=== PATIENT | male | born 1990 | race Caucasian/White ===

== ENCOUNTER → 2017-02-06 | Outpatient (CLI) | payer BC, OTHER ==
[~2017-02-06] MED LIST: HYDROCORTISONE SUCCINATE 100 MG/2 ML VIAL IV ONE; SODIUM CHLORIDE 0.9% 250 ML in EMPTY BAG 1 BAG IV PRN; SODIUM CHLORIDE 0.9% 500 ML in EMPTY BAG 1 BAG IV PRN; TUBERCULIN PPD (SKIN TEST) 5 UNIT/0.1 ML (MDV) VIAL INTRADERMA NR; diphenhydrAMINE 50 MG/ML 1 ML VIAL IVP ONE
[2017-02-06 12:39] VITALS: TEMP 97.9
[2017-02-06 14:47] VITALS: BP 130/75; PULSE 72; RESP 18
== END | disposition home or self-care (01) ==
LOC: PROCWHC3 12:15
PROVIDERS: ATTEND Internal Medicine
DX: K51.90 Ulcerative colitis, unspecified, without complications (principal)
CPT/HCPCS: 96361; 96375; 96413; 96415; 86580; J1200; J1720; J1745

== ENCOUNTER → 2017-04-01 | Outpatient (CLI) | payer OTHER ==
[~2017-04-01] MED LIST changes: -TUBERCULIN PPD (SKIN TEST) 5 UNIT/0.1 ML (MDV) VIAL INTRADERMA NR
[2017-04-01 08:42] VITALS: RESP 18; TEMP 97.4
[2017-04-01 10:33] VITALS: BP 120/72; PULSE 59
== END | disposition home or self-care (01) ==
LOC: PROCWHC3 08:26
PROVIDERS: ATTEND Internal Medicine
DX: K51.90 Ulcerative colitis, unspecified, without complications (principal)
CPT/HCPCS: 96413; 96415; J1200; J1720; J1745; 96375

== ENCOUNTER → 2017-05-27 | Outpatient (CLI) | payer OTHER ==
[~2017-05-27] MED LIST changes: -HYDROCORTISONE SUCCINATE 100 MG/2 ML VIAL IV ONE; +HYDROCORTISONE SUCCINATE 100 MG/2 ML VIAL IVP ONE
[2017-05-27 10:59] VITALS: TEMP 98.8
[2017-05-27 11:43] VITALS: RESP 18
[2017-05-27 12:38] VITALS: BP 129/66; PULSE 66
== END ==
LOC: PROCWHC3 10:25
PROVIDERS: ATTEND Internal Medicine
DX: Z51.11 Encounter for antineoplastic chemotherapy (principal); K50.10 Crohn's disease of large intestine without complications
CPT/HCPCS: 96375; 96413; 96415; J1200; J1720; J1745

== ENCOUNTER → 2017-07-22 | Outpatient (CLI) | payer OTHER ==
[~2017-07-22] MED LIST changes: +HYDROCORTISONE SUCCINATE 100 MG/2 ML VIAL IV ONE; -HYDROCORTISONE SUCCINATE 100 MG/2 ML VIAL IVP ONE; -SODIUM CHLORIDE 0.9% 250 ML in EMPTY BAG 1 BAG IV PRN
[2017-07-22 10:44] VITALS: RESP 18; TEMP 97.9
[2017-07-22 12:11] VITALS: BP 130/78; PULSE 66
== END | disposition home or self-care (01) ==
LOC: PROCWHC3 10:27
PROVIDERS: ATTEND Internal Medicine
DX: K50.10 Crohn's disease of large intestine without complications (principal)
CPT/HCPCS: 96375; 96413; 96415; J1200; J1720; J1745

== ENCOUNTER → 2017-09-20 | Outpatient (CLI) | payer OTHER ==
[~2017-09-20] MED LIST changes: +INFLIXIMAB DYYB IV ONE; +SODIUM CHLORIDE 0.9% IV ONE
[2017-09-20 09:00] VITALS: RESP 16; TEMP 98
[2017-09-20 10:29] VITALS: BP 116/74; PULSE 60
== END ==
LOC: PROCWHC3 08:47
PROVIDERS: ATTEND Internal Medicine
DX: K50.10 Crohn's disease of large intestine without complications (principal)
CPT/HCPCS: 96374; 96413; 96415; J1200; J1720; Q5102

== ENCOUNTER → 2018-01-14 | Outpatient (CLI) | payer OTHER ==
[~2018-01-14] MED LIST changes: +HYDROCORTISONE SUCCINATE 100 MG/2 ML VIAL IV NR; -HYDROCORTISONE SUCCINATE 100 MG/2 ML VIAL IV ONE; +INFLIXIMAB DYYB IV NR; -INFLIXIMAB DYYB IV ONE; +SODIUM CHLORIDE 0.9% IV NR; -SODIUM CHLORIDE 0.9% IV ONE; +diphenhydrAMINE 50 MG/ML 1 ML VIAL IVP NR; -diphenhydrAMINE 50 MG/ML 1 ML VIAL IVP ONE
[2018-01-14 11:01] VITALS: RESP 16; TEMP 98
[2018-01-14 11:54] VITALS: PULSE 71
[2018-01-14 12:25] VITALS: BP 132/72
== END | disposition home or self-care (01) ==
LOC: PROCWHC3 10:48
PROVIDERS: ATTEND Internal Medicine
DX: K50.10 Crohn's disease of large intestine without complications (principal)
CPT/HCPCS: 96375; 96413; 96415; J1200; J1720; Q5102

== ENCOUNTER → 2018-03-11 | Outpatient (CLI) | payer OTHER ==
[2018-03-11 11:25] VITALS: TEMP 97.9
[2018-03-11 12:46] VITALS: RESP 16
[2018-03-11 13:25] VITALS: BP 133/77; PULSE 77
== END | disposition home or self-care (01) ==
LOC: PROCWHC3 10:54
PROVIDERS: ATTEND Internal Medicine
DX: K50.10 Crohn's disease of large intestine without complications (principal)
CPT/HCPCS: 96375; 96413; 96415; J1200; J1720; Q5103

== ENCOUNTER → 2018-05-05 | Outpatient (CLI) | payer OTHER ==
[~2018-05-05] MED LIST changes: -HYDROCORTISONE SUCCINATE 100 MG/2 ML VIAL IV NR; +HYDROCORTISONE SUCCINATE 100 MG/2 ML VIAL IV ONE; -INFLIXIMAB DYYB IV NR; +INFLIXIMAB DYYB IV ONE; -SODIUM CHLORIDE 0.9% IV NR; +SODIUM CHLORIDE 0.9% IV ONE; -diphenhydrAMINE 50 MG/ML 1 ML VIAL IVP NR; +diphenhydrAMINE 50 MG/ML 1 ML VIAL IVP ONE
[2018-05-05 10:52] VITALS: TEMP 98.6
[2018-05-05 11:43] VITALS: RESP 16
[2018-05-05 12:08] VITALS: BP 134/74; PULSE 70
== END | disposition home or self-care (01) ==
LOC: PROCWHC3 10:22
PROVIDERS: ATTEND Internal Medicine
DX: K50.10 Crohn's disease of large intestine without complications (principal)
CPT/HCPCS: 96413; 96415; J1200; J1720; Q5103

== ENCOUNTER → 2018-07-01 | Outpatient (CLI) | payer OTHER ==
[2018-07-01 10:11] VITALS: TEMP 97.9
[2018-07-01 10:55] VITALS: RESP 16
[2018-07-01 12:15] VITALS: BP 135/76; PULSE 61
== END | disposition home or self-care (01) ==
LOC: PROCWHC3 09:49
PROVIDERS: ATTEND Internal Medicine
DX: K51.90 Ulcerative colitis, unspecified, without complications (principal)
CPT/HCPCS: 96413; 96415; J1200; J1720; Q5103

== ENCOUNTER → 2018-08-26 | Outpatient (CLI) | payer OTHER ==
[~2018-08-26] MED LIST changes: +HYDROCORTISONE SUCCINATE 100 MG/2 ML VIAL IV NR; -HYDROCORTISONE SUCCINATE 100 MG/2 ML VIAL IV ONE; +INFLIXIMAB DYYB IV NR; -INFLIXIMAB DYYB IV ONE; +SODIUM CHLORIDE 0.9% IV NR; -SODIUM CHLORIDE 0.9% IV ONE; +diphenhydrAMINE 50 MG/ML 1 ML VIAL IVP NR; -diphenhydrAMINE 50 MG/ML 1 ML VIAL IVP ONE
[2018-08-26 08:17] VITALS: TEMP 98
[2018-08-26 09:25] VITALS: RESP 16
[2018-08-26 10:26] VITALS: BP 129/74; PULSE 73
== END | disposition home or self-care (01) ==
LOC: PROCWHC3 08:07
PROVIDERS: ATTEND Internal Medicine
DX: K50.10 Crohn's disease of large intestine without complications (principal)
CPT/HCPCS: 96375; 96413; 96415; J1200; J1720; Q5103

== ENCOUNTER → 2018-10-21 | Outpatient (CLI) | payer OTHER ==
[~2018-10-21] MED LIST changes: +SODIUM CHLORIDE 0.9% 500 ML 500 ML in EMPTY BAG 1 BAG IV PRN; -SODIUM CHLORIDE 0.9% 500 ML in EMPTY BAG 1 BAG IV PRN
[2018-10-21 08:39] VITALS: RESP 16; TEMP 97.6
[2018-10-21 10:11] VITALS: BP 129/68; PULSE 57
== END ==
LOC: PROCWHC3 08:19
PROVIDERS: ATTEND Internal Medicine
DX: K50.10 Crohn's disease of large intestine without complications (principal); K51.90 Ulcerative colitis, unspecified, without complications
CPT/HCPCS: 96375; 96413; 96415; J1200; J1720; Q5103

== ENCOUNTER → 2018-12-16 | Outpatient (CLI) | payer OTHER ==
[~2018-12-16] MED LIST changes: -HYDROCORTISONE SUCCINATE 100 MG/2 ML VIAL IV NR; +HYDROCORTISONE SUCCINATE 100 MG/2 ML VIAL IVP NR
[2018-12-16 12:42] VITALS: RESP 16; TEMP 97.5
[2018-12-16 14:26] VITALS: BP 116/72; PULSE 61
== END ==
LOC: PROCWHC3 12:25
PROVIDERS: ATTEND Internal Medicine
DX: K51.90 Ulcerative colitis, unspecified, without complications (principal); K50.10 Crohn's disease of large intestine without complications
CPT/HCPCS: 96413; 96415; J1200; J1720; Q5103

== ENCOUNTER → 2019-02-10 | Outpatient (CLI) | payer OTHER ==
[2019-02-10 12:25] VITALS: RESP 16; TEMP 98
[2019-02-10 14:07] VITALS: BP 133/75; PULSE 78
== END | disposition home or self-care (01) ==
LOC: PROCWHC3 11:57
PROVIDERS: ATTEND Internal Medicine
DX: K50.10 Crohn's disease of large intestine without complications (principal)
CPT/HCPCS: 96375; 96413; 96415; J1200; J1720; Q5103

== ENCOUNTER → 2019-04-10 | Outpatient (CLI) | payer OTHER ==
[2019-04-10 09:13] VITALS: TEMP 97.8
[2019-04-10 10:09] VITALS: RESP 18
[2019-04-10 10:51] VITALS: BP 143/79; PULSE 63
== END ==
LOC: PROCWHC3 08:52
PROVIDERS: ATTEND Internal Medicine
DX: K51.90 Ulcerative colitis, unspecified, without complications (principal); K50.10 Crohn's disease of large intestine without complications
CPT/HCPCS: 96375; 96413; 96415; J1200; J1720; Q5103

== ENCOUNTER → 2019-06-11 | Outpatient (CLI) | payer OTHER ==
[~2019-06-11] MED LIST changes: +HYDROCORTISONE SUCCINATE 100 MG/2 ML VIAL IV ONE; -HYDROCORTISONE SUCCINATE 100 MG/2 ML VIAL IVP NR; -diphenhydrAMINE 50 MG/ML 1 ML VIAL IVP NR; +diphenhydrAMINE 50 MG/ML 1 ML VIAL IVP ONE
[2019-06-11 09:19] VITALS: TEMP 98.2
[2019-06-11] MEDS: HYDROCORTISONE SUCCINATE 100 MG/2 ML VIAL IV ONE ×2 (09:22→09:42)
[2019-06-11 10:13] VITALS: RESP 16
[2019-06-11 10:48] VITALS: BP 113/63; PULSE 61
== END | disposition home or self-care (01) ==
LOC: PROCWHC3 09:00
PROVIDERS: ATTEND Internal Medicine
DX: K50.10 Crohn's disease of large intestine without complications (principal)
CPT/HCPCS: 96375; 96413; 96415; J1200; J1720; Q5103

== ENCOUNTER → 2019-08-06 | Outpatient (CLI) | payer OTHER ==
[~2019-08-06] MED LIST changes: -HYDROCORTISONE SUCCINATE 100 MG/2 ML VIAL IV ONE; +HYDROCORTISONE SUCCINATE 100 MG/2 ML VIAL IVP ONE
[2019-08-06 10:11] VITALS: TEMP 97.9
[2019-08-06 11:18] VITALS: RESP 18
[2019-08-06 11:42] VITALS: BP 132/75; PULSE 50
== END | disposition home or self-care (01) ==
LOC: PROCWHC3 09:54
PROVIDERS: ATTEND Internal Medicine
DX: K51.90 Ulcerative colitis, unspecified, without complications (principal); K50.10 Crohn's disease of large intestine without complications
CPT/HCPCS: 96375; 96413; 96415; J1200; J1720; Q5103

== ENCOUNTER → 2019-10-05 | Outpatient (CLI) | payer OTHER ==
[~2019-10-05] MED LIST changes: +HYDROCORTISONE SUCCINATE 100 MG/2 ML VIAL IVP NR; -HYDROCORTISONE SUCCINATE 100 MG/2 ML VIAL IVP ONE; +SODIUM CHLORIDE 0.9% 250 ML IV NR; +diphenhydrAMINE 50 MG/ML 1 ML VIAL IVP NR; -diphenhydrAMINE 50 MG/ML 1 ML VIAL IVP ONE
[2019-10-05 10:00] VITALS: TEMP 97.9
[2019-10-05 10:44] VITALS: RESP 16
[2019-10-05 11:29] VITALS: BP 125/79; PULSE 69
== END ==
LOC: PROCWHC3 09:27
PROVIDERS: ATTEND Internal Medicine
DX: K50.10 Crohn's disease of large intestine without complications (principal)
CPT/HCPCS: 96375; 96413; 96415; J1200; J1720; Q5103

== ENCOUNTER → 2019-11-30 | Outpatient (CLI) | payer OTHER ==
[~2019-11-30] MED LIST changes: +HYDROCORTISONE SUCCINATE 100 MG/2 ML VIAL IV NR; -HYDROCORTISONE SUCCINATE 100 MG/2 ML VIAL IVP NR; -SODIUM CHLORIDE 0.9% 250 ML IV NR
[2019-11-30 12:26] VITALS: BP 133/84; PULSE 76; RESP 14; TEMP 98.2
== END | disposition home or self-care (01) ==
LOC: PROCWHC3 10:09
PROVIDERS: ATTEND Internal Medicine
DX: K50.10 Crohn's disease of large intestine without complications (principal)
CPT/HCPCS: 96375; 96413; 96415; J1200; J1720; Q5103